=== PATIENT | female | born 1980 | race American Indian/Alaskan Native ===

== ENCOUNTER 2016-08-03 05:50 | Inpatient (IN) | payer MEDICAID ==
--- NOTE | 2016-07-29 09:51 | Anesthesia Consultation ---
Anesthesia Consult and Med Hx Date of service: 08/03/16 - Airway Anesthetic Teeth Evaluation: Good ROM Head & Neck: Adequate Mental/Hyoid Distance: Adequate Mallampati Class: Class III Intubation Access Assessment: Probably Good - Pulmonary Exam CTA: Yes - Cardiac Exam Cardiac Exam: RRR - Pre-Operative Health Status ASA Pre-Surgery Classification: ASA3 Proposed Anesthetic Plan: General - Pulmonary Hx Asthma: Yes (uses nebs and inhalers almost every day) - Cardiovascular System Hx Hypertension: Yes (x 6 or 7 yrs) - Central Nervous System Hx Psychiatric Problems: Yes - Gastrointestinal Hx Gastroesophageal Reflux Disease: Yes - Endocrine Hx End Stage Renal Disease: No - Hematic Hx Anemia: Yes ("slight") - Other Systems Hx Alcohol Use: No Hx Substance Use: No Hx Cancer: No Hx Obesity: Yes (BMI 48) - Additional Comments Anesthesia Medical History Comments: Patient denies previous anesthesia complications. Has been advised to take atenolol on DOS.
[2016-07-29 10:22] LABS: Eosinophils % (Auto) 1.6 % (0.0-4.3); Hematocrit 29.6 % (30.3-42.9); Mean Corpuscular HGB Conc 30 % (30-34); Platelet Count 486 K/mm3 (140-440); Red Cell Distribution Width 17.4 % (13.2-15.2); White Blood Count 6.2 K/mm3 (4.5-11.0)
[2016-07-29 10:23] LABS: Mean Corpuscular Hemoglobin 20 pg (28-32); Mean Corpuscular Volume 66 fl (79-97)
[2016-07-29 10:48] LABS: Alanine Aminotransferase 13 units/L (7-56); Albumin 3.7 g/dL (3.9-5); Albumin/Globulin Ratio 0.9 %; Alkaline Phosphatase 74 units/L (35-129); Anion Gap 15 mmol/L; Bilirubin,Total 0.2 mg/dL (0.1-1.2); Blood Urea Nitrogen 7 mg/dL (7-17); Calcium 8.7 mg/dL (8.4-10.2); Carbon Dioxide 26 mmol/L (22-30); Chloride 103.6 mmol/L (98-107); Glucose 100 mg/dL (65-100); Potassium 4.4 mmol/L (3.6-5.0); Sodium 140 mmol/L (137-145); Total Protein 7.8 g/dL (6.3-8.2)
--- NOTE | 2016-07-29 11:07 | XRay Report ---
ROUTINE CHEST, TWO VIEWS: PA and lateral views demonstrate the heart and mediastinal contour to be of normal size and shape. The lungs are clear and fully expanded and the soft tissues and bony structures are normal. IMPRESSION: Normal study.
--- NOTE | 2016-08-02 21:49 | History and Physical Report ---
History of Present Illness Date of examination: 07/28/16 Chief complaint: pelvic pain, dermoid cyst History of present illness: Pt is a 36 year old -[place] female who presents with pelvic pain and second occurrence of left dermoid cyst measuring 4.4 cm. She desires surgical management. 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 History: fibroids, herpes Family/Genetic History: diabetes, heart disease, hypertension, cancer, sickle cell/trait Social history: no significant social history, Medications and Allergies Allergies Allergy/AdvReac Type Severity Reaction Status Date / Time Sulfa (Sulfonamide Allergy Anaphylaxis Verified 07/28/16 15:07 Antibiotics) chocolate flavor AdvReac Unknown Hives Verified 07/28/16 15:07 tomato [Tomato] AdvReac Unknown Hives Verified 07/28/16 15:07 Home Medications Medication Instructions Recorded Confirmed Last Taken Type metFORMIN [Glucophage] 500 mg PO BID 08/22/15 07/29/16 08/21/15 History ARIPiprazole [Abilify TAB] 5 mg PO DAILY 07/29/16 07/29/16 Unknown History Albuterol Sulfate [Albuterol 0.63% 0.63 mg IH TID PRN 07/29/16 07/29/16 Unknown History NEBS] Atenolol [Tenormin] 50 mg PO DAILY 07/29/16 07/29/16 Unknown History Bupropion HCl [Wellbutrin XL] 300 mg PO QAM 07/29/16 07/29/16 Unknown History Flunisolide [Aerospan] 8.9 gm IH PRN PRN 07/29/16 07/29/16 Unknown History Spironolactone [Spironolactone] 50 mg PO DAILY 07/29/16 07/29/16 Unknown History Trazodone HCl [Oleptro ER] 150 mg PO QHS 07/29/16 07/29/16 Unknown History clonazePAM [ Klonopin] 0.5 mg PO BID 07/29/16 07/29/16 Unknown History Active Meds: Active Medications Celecoxib (Celebrex) 200 mg PO PREOP NR Stop: 08/03/16 23:59 Famotidine (Pepcid) 20 mg IV PREOP NR Stop: 08/03/16 23:59 Fentanyl (Sublimaze) 100 mcg IV ONCE NR Stop: 08/03/16 23:59 Gabapentin (Neurontin) 600 mg PO PREOP NR Stop: 08/03/16 23:59 Sodium Chloride (Nacl 0.9% 1000 Ml) 1,000 mls @ 75 mls/hr IV DIRECT MINDI Stop: 08/03/16 23:59 Midazolam HCl (Versed) 2 mg IV PREOP PRN PRN Reason: Agitation Stop: 08/03/16 23:59 Review of Systems All systems: negative - Vital Signs Vital signs: Vital Signs Temp Pulse Resp BP 97.6 F 80 16 128/84 07/29/16 09:30 07/29/16 09:30 07/29/16 09:30 07/29/16 09:30 Temp Pulse Resp BP Pulse Ox 97.6 F 80 16 128/84 07/29/16 09:30 07/29/16 09:30 07/29/16 09:30 07/29/16 09:30 - Physical Exam Breasts: Positive: deferred Cardiovascular: Regular rate Lungs: Positive: Clear to auscultation Abdomen: Positive: soft (obese) Extremities: Positive: normal Results Result Diagrams: 07/29/16 09:35 07/29/16 09:35 All other labs normal. Assessment and Plan A: Pelvic Pain Second occurrence of left dermoid ovarian cyst Obesity Hypertension Asthma Migraines H/o stroke P: Proceed with open left salpingo-oophorectomy and other indicated procedures.
[~2016-08-03 05:50] MED LIST: ANCEF/STERILE WATER 2 GM/20 ML 20 ML IV NR
[2016-08-03] MEDS ORDERED: PEPCID IV NR (06:00)
[2016-08-03] MEDS ORDERED: NACL 0.9% 1000 ML 1,000 ML IV SCH (06:00)
[2016-08-03] MEDS ORDERED: VERSED IV PRN (06:00)
[2016-08-03] MEDS ORDERED: NACL BACTERIOSTATIC INFILTRATI ONE (06:22)
[2016-08-03] MEDS ORDERED: MARCAINE-EPI 0.5%-1:200,000 INFILTRATI ONE (06:49)
[2016-08-03] MEDS ORDERED: MARCAINE-EPI/PF 0.5%-1:200,000 INFILTRATI ONE (06:49)
[2016-08-03] MEDS ORDERED: DECADRON ONE (06:49)
[2016-08-03] MEDS ORDERED: SUBLIMAZE IV NR (07:00)
[2016-08-03] MEDS ORDERED: NEURONTIN PO NR (07:00)
--- NOTE | 2016-08-03 07:17 | Anesthesia Day of Surgery ---
Anesthesia Day of Surgery - Day of Surgery Patient Examined: Yes Patient H&P Reviewed: Yes Patient is NPO: Yes Beta Blockers: Yes
[2016-08-03] MEDS ORDERED: DIPRIVAN 10 MG/ML IV ONE (07:20)
[2016-08-03] MEDS ORDERED: DILAUDID ONE (07:21)
[2016-08-03] MEDS ORDERED: ZEMURON IV ONE (07:21)
[2016-08-03] MEDS ORDERED: XYLOCAINE MPF 2% ONE (07:21)
[2016-08-03] MEDS ORDERED: DILAUDID IV PRN (07:30)
--- NOTE | 2016-08-03 07:36 | Admit Criteria Form ---
Admission Criteria Documentation: AMBULATORY SURGERY EXCEPTION CRITERIA Ambulatory Surgery Exception Criteria ( Place 'X' for any and all applicable criteria): Surgery or procedure performed on ambulatory basis may require inpatient stay for[A] ANY ONE of the following(1)(2)(3)(4)(5)(6)(7)(8)(9): [X] I. A preoperative situation, condition, or finding that warrants inpatient stay as indicated by ANY ONE of the following: [] a) Inpatient care needed because of severity of a disease or condition rather than the surgery (eg, severe cardiac or respiratory disease, severe infection) (15) (16 ) (17) (18) [] b) Emergent procedure (eg, angioplasty for acute ischemia)(19) [X] c) Complex surgical approach or situation as indicated by ANY ONE of the following(3): [X] i) Open approach needed instead of usual endoscopic, transcatheter, or other less invasive procedure [] ii) Difficult approach because of previous operation [] iii) Airway monitoring required after open neck procedures(20)(21) [] iv) Large mass requiring unusually extensive dissection [] v) Additional complicating feature requiring inpatient care (eg, drain management)(22(23): [X] d) Major surgery in a pt with high anesthetic risk as indicated by ANY ONE of the following (2)(3)(5)(7)(8): [X] i) ASA risk class III or higher (severe systemic disease impairing function) [D] [] ii) Advanced age (eg, older than 85 years)(14)(24) [] iii) Symptomatic heart failure(25) [] iv) Symptomatic asthma or COPD(8)(21) [] v) Morbid obesity with hemodynamic or respiratory problems(20)( 21)(26)(27) [] vi) Obstructive sleep apnea(20)(21) [] vii) Former premature infants who are younger than 60 weeks [] viii) High risk for severe postoperative abnormalities (eg, severe postoperative hypocalcemia after parathyroidectomy for severe hyperparathyroidism)(27)( 28) [] ix) Unstable angina(25) [] e) Drug-related risk requiring inpatient stay as indicated by ANY ONE of the following(5)(10)(14)(32)(33) [] i) Procedure requires discontinuing drugs or other therapy (eg , antiarrhythmic medication, antiseizure medication), which necessitates inpatient observation or treatment.(18)(31) [] ii) Major surgery and high risk drug use as indicated by ANY ONE of the following: [] 1) Active abuse of cocaine or similar drug [] 2) Monoamine oxidase inhibitor use [] 3) Other drug identified as posing risk [] f) Inadequate outpatient care situation as indicated by ANY ONE of the following(5)(10)(14)(32)(33) [] i) Patient lives remote from medical facility and procedure has urgent complication potential, and temporary nearby residence cannot be arranged [] ii) Patient will have postprocedure incapacitation and inadequate assistance at home, or alternative level of care cannot be arranged. [] iii) Patient will have long general anesthesia or procedure side effect resolution time, and competent person to stay with patient on first postoperative night at home or alternative level of care cannot be arranged. []iv) Other inadequate outpatient situation that cannot be handled by other means [] II. A perioperative event, condition, or finding that warrants inpatient stay as indicated by ANY ONE of the following (1)(2)(3): [] a) Inadequate physiologic recovery: cardiovascular, respiratory, or hemodynamic status not normal or near preoperative baseline(18) [] b) Hemodynamic instability [] c) Patient not alert with near normal or baseline mental status [] d) Temperature not normal or as expected and not appropriate for outpatient treatment of condition [] e) Ambulatory or appropriate activity level status not yet achieved post procedure [E](34)(35)(36) [] f) Operative site not appropriate (eg, unexpected or excessive drainage or bleeding) [] g) Postoperative effects not resolved or adequately managed (eg, significant pain or vomiting not appropriate for outpatient or next level of care)(10)(12) [] h) Complicating features requiring inpatient care as indicated by ANY ONE of the following(37): [] i) Severe complications of procedure (eg, bowel injury, airway compromise, vascular injury,severe hemorrhage) [] ii) Extensive (eg, dissection far beyond usual scope of procedure ) or prolonged (eg, 120 minutes beyond usual) surgery needed requiring inpatient postoperative care [] iii) Conversion to an open or complex procedure that requires inpatient care (eg, open vs laparoscopic cholecystectomy, abdominal vs vaginal hysterectomy)(38) [] iv) Comorbid condition or test result identified during or post procedure that requires inpatient care (7) [] v) Malignant hyperthermia(30) [] vi) Other complicating feature requiring inpatient care(22)(23) Inpatient stay may be needed until ALL of the following are present (1)(2)(3)(4) (5)(6)(10)(14)(33)(40): []a) Physiologic recovery: cardiovascular, respiratory, and hemodynamic status normal or near preoperative baseline []b) Hemodynamic stability []c) Patient alert, with near normal or baseline mental status []d) Temperature appropriate: patient afebrile or temperature appropriate for outpt treatment of condition []e) Activity level appropriate: ambulatory or appropriate activity level post procedure []f) Operative site appropriate as indicated by ALL of the following: []i) Site dry or with expected drainage []ii) Any blood noted is as expected for procedure. []g) Postoperative effects resolved or managed as indicated by ALL of the following: []i) Pain management appropriate for outpatient (or next level of) care(10) []ii) Minimal nausea and vomiting: if present, successfully treated with oral medication(12) []iii) Headache, dizziness, or drowsiness (if present) are mild. []h) Voiding status acceptable as indicated by ANY ONE of the following: []i) Voiding spontaneously []ii) No voiding but instructions given for follow-up in 6 to 8 hours []iii) Urinary catheter in place, and instructions given for follow-up []i) Complicating features requiring inpatient care manageable at a lower level of care(37) []j) Comorbid conditions manageable at a lower level of care(37) The original [facility] content created by [employer] has been revised. The portions of the content which have been revised are identified through the use of italic text or in bold, and [facility] has neither reviewed nor approved the modified material. All other unmodified content is copyright [facility]. Please see references footnoted in the original [facility] edition 2016 Admission Criteria Met: Yes
[2016-08-03] MEDS ORDERED: ZOFRAN IV PRN ×2 (08:00→11:18)
[2016-08-03] MEDS ORDERED: CLONIDINE 1,000 MCG/10 ML VIAL EP ONE (08:00)
[2016-08-03] MEDS ORDERED: NACL 0.9% 1000 ML 1,000 ML ONE (08:05)
[2016-08-03] MEDS ORDERED: ROBINUL ONE (08:17)
[2016-08-03] MEDS ORDERED: ZOFRAN ONE (08:17)
[2016-08-03] MEDS ORDERED: BLOXIVERZ ONE (08:17)
[2016-08-03] MEDS ORDERED: NACL 0.9% IR ONE (08:48)
--- NOTE | 2016-08-03 09:19 | Operative Report ---
Operative Report Operative Report: Date of Procedure: August 03, 2016 Preoperative diagnosis: 1) Pelvic Pain 2) Left dermoid cyst, second occurrence Postoperative diagnosis: 1) Right ovarian cyst 2) Left paratubal cyst Procedure: 1) Laparotomy 2) Right ovarian cystectomy 3) Left paratubal cystectomy Surgeon: Parris Maceil MD Parking Assistant: Mellissa Florez MD Anesthesia: GETA Findings: 1) 3 cm right ovarian cyst, simple appearing 2) 2 cm left paratubal cyst, simple appearing 3) No evidence of dermoid cyst in either adnexa EBL: 50 mL IVF: 750 mL Urine output: 225 mL, clear at the end of the procedure Drains: Wang to gravity Specimens: right ovarian cyst wall, left paratubal cyst wall to pathology Complication: None. Counts correct x 2 Disposition: Stable to PACU Indication for Procedure: Pt is a 36 year old -[place] female who presents for surgical management of pelvic pain and second occurrence of left dermoid cyst (4.4 cm) as evidenced by pelvic ultrasound. During her first surgery, there was conversion from laparoscopic to an open approach, therefore an open approach has been chosen for this procedure. Operation In Detail: After the risks, benefits, alternatives and complications were explained to the pt, she gave informed consent for the procedure. She was subsequently taken to the operating room with her IV noted to be running well and placed in the dorsal supine position. SCDs were noted to be in place and functioning. General anesthesia was then induced without difficulty. She was then prepped and draped in a normal sterile fashion including placement of a wang catheter. A time out was performed. A Pfannenstiel incision was created with the knife and carried down to the fascia with the Bovie. The fascia was then incised in the midline with the Bovie and the incision was extended bilaterally with the Bovie. The superior edge of incision was then grasped with two Kochers, tented up and dissected off the rectus muscles. Attention was then turned to the inferior aspect of the incision which was grasped with two Kochers, tented up and dissected off the rectus muscles. Peritoneal was noted during this dissection. The peritoneal incision was extended with the Bovie with good visualization of the bladder. The incision was then stretched. An Jason self-retaining retractor was placed. The pt was the placed in Trendelenberg position to facilitate movement of the bowel out of the pelvis. The uterus was elevated out of the pelvis and the adnexae were evaluated bilaterally. There was no evidence of a 4 cm cyst on either side. On the right side, a 3 cm apparently simple cyst was noted. The cyst wall was coagulated with the Bovie and drained. The cyst wall was subsequently excised from the ovarian tissue and handed off the field. Hemostasis was noted. Attention was then turned to the left adnexa where a 2 cm paratubal cyst was noted, but no ovarian cysts. The cyst was punctured, drained and excised. The cyst wall was handed off the field. The remaining edge of the ovary was sutured with 2 figure- of-eights of 3-0 Vicryl to obtain hemostasis. Hemostasis was noted. The abdomen was then irrigated. Aisha AH was sprayed over the two cut surfaces. All instruments and retractors were removed from the abdomen and the pt was leveled. The peritoneum was then reapporoximated with 3-0 Vicryl in a running fashion. The fascia was reapproximated with 0-Vicryl in a running fashion. The subcutaneous tissue was reapproximated with 3-0 Vicryl in a running fashion. The skin was reapproximated with 4-0 Vicryl in a subcuticular fashion. The incision was then covered with steristrips and a pressure dressing. The procedure was ended. The pt tolerated the procedure well. She was extubated and taken to the PACU in stable condition. All instrument, lap and needle counts were correct x 2.
--- NOTE | 2016-08-03 09:19 | Post Operative Note ---
Pre-op diagnosis: Left dermoid cyst Post-op diagnosis: other (Right ovarian cystectomy, Left paratubal cystectomy) Findings: 1) 3 cm right ovarian cyst, simple appearing 2) 2 cm left paratubal cyst, simple appearing 3) No evidence of dermoid cyst in either adnexa Procedure: 1) Laparotomy 2) Right ovarian cystectomy 3) Left paratubal cystectomy Anesthesia: GETA Surgeon: ANGEL BARGER Estimated blood loss: 50-100ml (50 mL) Pathology: list (right ovarian cyst wall, left paratubal cyst wall) Specimen disposition: to lab Condition: stable Disposition: PACU
--- NOTE | 2016-08-03 10:05 | Post Anesthesia Evaluation ---
- Post Anesthesia Evaluation Patient Participated: Yes Airway Patent: Yes Stable Respiratory Function: Yes Nausea/Vomiting: No Temp > 96.8F: Yes Pain Manageable: Yes Adequeate Hydration: Yes Anesthesia Complications: No Block Receding Appropriately: Not Applicable Patient on Ventilator: No
[2016-08-03] MEDS ORDERED: NARCAN 0.4 MG/1 ML IV PRN ×3 (10:21→11:18)
[2016-08-03] MEDS ORDERED: MORPHINE PCA 30MG/30ML IV ONE (10:23)
[2016-08-03] MEDS ORDERED: DULCOLAX PR PRN (11:18)
[2016-08-03] MEDS ORDERED: MILK OF MAGNESIA PO PRN (11:18)
[2016-08-03] MEDS ORDERED: MORPHINE PCA 30MG/30ML IV SCH (11:18)
[2016-08-03] MEDS ORDERED: BENADRYL PO PRN (11:18)
[2016-08-03] MEDS ORDERED: BENADRYL IV PRN (11:18)
[2016-08-03] MEDS ORDERED: TORADOL ONE (12:20)
[2016-08-03] MEDS: TORADOL IV SCH ×2 (12:33→17:15)
[2016-08-03] MEDS: LACTATED RINGERS 1,000 ML IV SCH (13:32)
[2016-08-04] MEDS: TORADOL IV SCH ×2 (00:05→05:45)
[2016-08-04] MEDS: LACTATED RINGERS 1,000 ML IV SCH (00:05)
[2016-08-04 06:02] LABS: Hematocrit 25.6 % (30.3-42.9); Hemoglobin 7.8 gm/dl (10.1-14.3)
--- NOTE | 2016-08-04 08:59 | Progress Note ---
Assessment and Plan A; POD#1 s/p ex lap, ovarian cystectomy, paratubal cystectomy P: Routine postoperative care. Subjective - Subjective Date of service: 08/04/16 Principal diagnosis: POD#1 s/p ex lap, ovarian cystectomy, paratubal cystectomy Interval history: No overnight events. Patient reports: pain well controlled, no voiding normally (wang just removed ) , no flatus, no bowel movement, no nauseated Objective - Vital Signs Latest vital signs: Vital Signs Temp Pulse Pulse Pulse Resp BP BP 08/04/16 07:41 20 08/04/16 07:20 97.9 F 80 20 08/04/16 06:15 97.6 F 86 18 114/70 08/04/16 01:30 98.1 F 80 18 133/83 08/03/16 21:00 98.2 F 85 18 142/83 08/03/16 18:00 20 08/03/16 17:15 100 H 136/83 08/03/16 16:15 20 08/03/16 16:00 98.4 F 90 20 124/80 08/03/16 14:15 20 08/03/16 12:15 20 08/03/16 11:05 98.3 F 88 20 122/84 08/03/16 10:30 85 21 132/85 08/03/16 10:15 97.4 F L 86 22 141/89 08/03/16 09:55 86 23 147/91 08/03/16 09:40 88 29 H 138/86 08/03/16 09:25 92 H 28 H 138/86 08/03/16 09:20 91 H 22 140/85 08/03/16 09:14 97.8 F 98 H 12 138/80 08/03/16 08:58 98.3 F 98 H 18 131/84 BP Pulse Ox 08/04/16 07:41 08/04/16 07:20 100/64 08/04/16 06:15 08/04/16 01:30 08/03/16 21:00 08/03/16 18:00 08/03/16 17:15 08/03/16 16:15 08/03/16 16:00 08/03/16 14:15 08/03/16 12:15 08/03/16 11:05 08/03/16 10:30 96 08/03/16 10:15 95 08/03/16 09:55 100 08/03/16 09:40 98 08/03/16 09:25 97 08/03/16 09:20 96 08/03/16 09:14 98 08/03/16 08:58 96 Intake and Output 08/03/16 08/04/16 08/04/16 22:59 06:59 14:59 Intake Total 960 1430 Output Total 700 1100 Balance 260 330 Intake: IV 600 1150 NaCl 0.9% 1000 ml 1,000 150 ml @ 75 mls/hr IV DIRECT MINDI Rx#:[id number] Lactated Ringers 1,000 ml 400 600 @ 100 mls/hr IV DIRECT MINDI Rx#:[id number] Left Forearm 200 400 Oral 360 Intake, Free Water 280 Output: Urine 700 1100 Indwelling Catheter 700 1100 Other: Total, Intake Amount 360 Total, Output Amount 700 300 Voiding Method Indwelling Catheter - Exam Breasts: Present: deferred Cardiovascular: Present: Regular rate Lungs: Present: Clear to auscultation Abdomen: Present: soft (obese ), abnormal bowel sounds (hypoactive bowel sounds ) Extremities: Present: edema (trace ) - Labs Labs: Abnormal lab results 08/03/16 08/04/16 08/04/16 Range/Units 09:42 05:41 05:59 Hgb 7.8 L (10.1-14.3) gm/dl Hct 25.6 L (30.3-42.9) % POC Glucose 133 H 106 H (70-105)
[2016-08-04] MEDS ORDERED: MORPHINE IV PRN (09:30)
--- NOTE | 2016-08-04 11:40 | Progress Note ---
Subjective Date of service: 08/04/16 Principal diagnosis: POD#1 s/p ex lap, ovarian cystectomy, paratubal cystectomy Interval history: 1st POD after exploratory laparotomy. Patient is in thr bed, relatively comfortable. Pain is well controlled with pain meds. Ambulated. No nausea or vomiting. No anesthesia complications Objective - Constitutional Vitals: Vital Signs - 12hr 08/04/16 08/04/16 08/04/16 01:30 06:15 07:20 Temperature 98.1 F 97.6 F 97.9 F Pulse Rate [ 80 86 Right Brachial] Pulse Rate [ 80 Right Radial] Respiratory 18 18 20 Rate Blood Pressure 133/83 114/70 [Right Arm] Blood Pressure 100/64 [Right Radial Artery] 08/04/16 08/04/16 07:41 08:00 Temperature Pulse Rate [ Right Brachial] Pulse Rate [ Right Radial] Respiratory 20 20 Rate Blood Pressure [Right Arm] Blood Pressure [Right Radial Artery] - Labs CBC & Chem 7: 08/04/16 05:41 07/29/16 09:35 Labs: Abnormal lab results 08/04/16 08/04/16 Range/Units 05:41 05:59 Hgb 7.8 L (10.1-14.3) gm/dl Hct 25.6 L (30.3-42.9) % POC Glucose 106 H (70-105)
[2016-08-04] MEDS: PERCOCET 5/325 PO PRN ×2 (14:22→22:15)
[2016-08-04] MEDS ORDERED: AMBIEN PO PRN (17:37)
[2016-08-05] MEDS: PERCOCET 5/325 PO PRN ×2 (01:58→12:14)
--- NOTE | 2016-08-05 11:36 | Progress Note ---
Assessment and Plan A; POD#2 s/p ex lap, ovarian cystectomy, paratubal cystectomy P: Routine postoperative care. Discharge today with follow up in 2 wks. Subjective - Subjective Date of service: 08/05/16 Principal diagnosis: POD#2 s/p ex lap, ovarian cystectomy, paratubal cystectomy Interval history: No overnight events. Pt had a bowel movement overnight. Patient reports: appetite normal, voiding normally, pain well controlled, flatus , bowel movement, ambulating normally, no nauseated Objective - Vital Signs Latest vital signs: Vital Signs Temp Pulse Resp BP 08/05/16 08:45 97.1 F L 80 20 126/88 08/05/16 07:45 20 08/05/16 04:15 98.3 F 85 20 128/69 08/05/16 00:25 98.4 F 87 24 142/85 08/04/16 20:00 98.9 F 90 20 132/79 08/04/16 17:30 97.4 F L 76 20 112/70 08/04/16 12:15 97.7 F 88 20 100/66 Intake and Output 08/04/16 08/05/16 08/05/16 22:59 06:59 14:59 Intake Total 480 480 120 Output Total 375 990 5101 Balance 180 180 -880 Intake: Oral 360 480 120 Intake, Free Water 120 Output: Urine 968 220 7396 Indwelling Catheter 200 Void 290 376 9892 Other: Total, Intake Amount 360 240 120 Total, Output Amount 100 300 200 Voiding Method Toilet - Exam Breasts: Present: deferred Cardiovascular: Present: Regular rate Lungs: Present: Clear to auscultation Abdomen: Present: soft (obese ), normal bowel sounds Extremities: Present: normal Incision: Present: intact
--- NOTE | 2016-08-05 11:41 | Discharge Summary ---
Providers - Providers Date of Admission: 08/03/16 05:50 Date of discharge: 08/05/16 Attending physician: ANGEL BARGER Primary care physician: MICHEL DENNEY Hospitalization Reason for admission: other (Ex lap, ovarian cystectomy, paratubal cystectomy ) Procedure details: Please see operative note. Incision: intact Other procedures: none complications: none Discharge diagnosis: other (Pelvic Pain, ovarian cyst, morbid obesity ) Hospital course: Pt tolerated her surgery well. Her postoperative course was uncomplicated and she met discharge criteria on POD#2. Condition at discharge: Stable Disposition: DISCHARGED TO HOME OR SELFCARE - Discharge Diagnoses (1) Morbid obesity Status: Acute Qualifiers: Obesity type: due to excess calories Qualified Code(s): E66.01 - Morbid ( severe) obesity due to excess calories (2) Pelvic pain Status: Acute Plan - Discharge Medications Prescriptions: Docusate Sodium [Colace] 100 mg PO BID PRN #60 capsule PRN Reason: Constipation Ferrous Sulfate [Feosol 325 MG tab] 325 mg PO BID #60 tablet Ibuprofen [Motrin] 800 mg PO Q8HR PRN #30 tablet PRN Reason: Pain Simethicone [Gas Relief] 125 mg PO BID PRN #30 capsule PRN Reason: Gas Pain oxyCODONE /ACETAMINOPHEN [Percocet 5/325] 1 tab PO Q6HR PRN #30 tablet PRN Reason: Pain - Provider Discharge Summary Activity: no sex for 6 weeks, no heavy lifting 4 weeks, no strenuous exercise Diet: routine Instructions: routine Additional instructions: [] Smoking cessation referral if applicable(refer to patient education folder for contact #) [] Refer to [facility] Booklet Call your doctor immediately for: * Fever > 100.5 * Heavy vaginal bleeding ( >1 pad per hour) * Severe persistent headache * Shortness of breath * Reddened, hot, painful area to leg or breast * Drainage or odor from incision. * Keep incision clean and dry at all times and follow doctor's instructions regarding bathing/showering - Follow up plan Follow up: MICHEL DENNEY MD [Primary Care Provider] - 7 Days ANGEL BARGER MD [Staff Physician] - 7 Days
[2016-08-05 13:38] VITALS: BP 142/88
== END 2016-08-05 13:00 | disposition home or self-care (01) | DRG 742 ==
LOC: 3A 05:50 → OB 10:12
PROVIDERS: ADMIT Obstetrics & Gynecology; ATTEND Obstetrics & Gynecology
PROC: 0UB00ZZ Excision of Right Ovary, Open Approach (ICD-10-PCS; principal; 2016-08-03)
PROC: 0UB60ZZ Excision of Left Fallopian Tube, Open Approach (ICD-10-PCS; 2016-08-03)
PROC: 0WJJ0ZZ Inspection of Pelvic Cavity, Open Approach (ICD-10-PCS; 2016-08-03)
DX: D27.0 Benign neoplasm of right ovary (principal); Z68.42 Body mass index [BMI] 45.0-49.9, adult; E66.01 Morbid (severe) obesity due to excess calories; J45.909 Unspecified asthma, uncomplicated; I10 Essential (primary) hypertension; K21.9 Gastro-esophageal reflux disease without esophagitis; G43.909 Migraine, unspecified, not intractable, without status migrainosus; N83.8 Other noninflammatory disorders of ovary, fallopian tube and broad ligament; Z86.73 Personal history of transient ischemic attack (TIA), and cerebral infarction without residual deficits; Z83.3 Family history of diabetes mellitus; Z82.49 Family history of ischemic heart disease and other diseases of the circulatory system; Z88.2 Allergy status to sulfonamides; Z91.018 Allergy to other foods
CPT/HCPCS: 36415; 64450; 71020; 80053; 82962; 84703; 85014; 85018; 85025; 88304; 88305; J0690; J0735; J1100; J1170; J1885; J2250; J2270; J2405; J2704; J2710; J3010; J7030; J7120

== ENCOUNTER 2017-04-13 13:13 | Emergency (ER) | payer SELFPAY ==
[2017-04-13 14:08] LABS: Basophils % (Auto) 1.6 % (0.0-1.8); Eosinophils % (Auto) 1.4 % (0.0-4.3); Mean Corpuscular HGB Conc 30 % (30-34); Platelet Count 543 K/mm3 (140-440); Red Blood Count 4.58 M/mm3 (3.65-5.03); Red Cell Distribution Width 16.7 % (13.2-15.2); White Blood Count 8.4 K/mm3 (4.5-11.0)
[2017-04-13 14:10] LABS: Mean Corpuscular Hemoglobin 20 pg (28-32); Mean Corpuscular Volume 66 fl (79-97)
[2017-04-13 14:28] LABS: Anion Gap 18 mmol/L; Blood Urea Nitrogen 7 mg/dL (7-17); Calcium 9.1 mg/dL (8.4-10.2); Carbon Dioxide 26 mmol/L (22-30); Chloride 100.2 mmol/L (98-107); Glucose 95 mg/dL (65-100); Potassium 3.8 mmol/L (3.6-5.0); Sodium 140 mmol/L (137-145)
[2017-04-13 20:59] VITALS: BP 127/56
--- NOTE | 2017-04-13 21:58 | Emergency Department Report ---
ED Chest Pain HPI - General Chief Complaint: Chest Pain Stated Complaint: CP/ POOR BLOOD FLOW Time Seen by Provider: 04/13/17 21:27 Source: patient Mode of arrival: Ambulatory Limitations: No Limitations - History of Present Illness Initial Comments: This is a 36 years old female history of high blood pressure came today with chief complain of left-sided chest pain, it has been going on for 2 weeks,also bilateral lower extremity swelling. Patient denied any shortness of breath, fever or cough. Patient currently does not have any chest pain MD Complaint: chest pain -: Gradual Onset: during exertion Pain Location: substernal Pain Radiation: none Severity scale (0 -10): 0 Quality: aching - Related Data Home Medications Medication Instructions Recorded Confirmed Last Taken metFORMIN [Glucophage] 500 mg PO BID 08/22/15 08/03/16 08/02/16 ARIPiprazole [Abilify TAB] 5 mg PO DAILY 07/29/16 08/03/16 08/02/16 Albuterol Sulfate [Albuterol 0.63% 0.63 mg IH TID PRN 07/29/16 08/03/16 08/03/16 NEBS] Atenolol [Tenormin] 50 mg PO DAILY 07/29/16 08/03/16 08/02/16 Bupropion HCl [Wellbutrin XL] 300 mg PO QAM 07/29/16 08/03/16 08/02/16 Flunisolide [Aerospan] 8.9 gm IH PRN PRN 07/29/16 08/03/16 08/02/16 Spironolactone [Spironolactone] 50 mg PO DAILY 07/29/16 08/03/16 08/02/16 Trazodone HCl [Oleptro ER] 150 mg PO QHS 07/29/16 08/03/16 08/02/16 clonazePAM [ Klonopin] 0.5 mg PO BID 07/29/16 08/03/16 08/02/16 Previous Rx's Medication Instructions Recorded Last Taken Type Docusate Sodium [Colace] 100 mg PO BID PRN #60 capsule 08/05/16 Unknown Rx Ferrous Sulfate [Feosol 325 MG tab] 325 mg PO BID #60 tablet 08/05/16 Unknown Rx Ibuprofen [Motrin] 800 mg PO Q8HR PRN #30 tablet 08/05/16 Unknown Rx Simethicone [Gas Relief] 125 mg PO BID PRN #30 capsule 08/05/16 Unknown Rx oxyCODONE /ACETAMINOPHEN [Percocet 1 tab PO Q6HR PRN #30 tablet 08/05/16 Unknown Rx 5/325] Furosemide [Lasix] 20 mg PO QDAY #15 tablet 04/13/17 Unknown Rx Potassium Chloride [K-Dur] 10 meq PO QDAY #15 tablet 04/13/17 Unknown Rx Allergies Allergy/AdvReac Type Severity Reaction Status Date / Time Sulfa (Sulfonamide Allergy Anaphylaxis Verified 07/28/16 15:07 Antibiotics) chocolate flavor AdvReac Unknown Hives Verified 07/28/16 15:07 tomato [Tomato] AdvReac Unknown Hives Verified 07/28/16 15:07 Heart Score - HEART Score History: Moderately suspicious EKG: Non-specific Age: < 45 Risk factors: 1-2 risk factors Troponin: < normal limit HEART Score: 3 - Critical Actions Critical Actions: 0-3 pts:0.9-1.7%risk of adverse cardiac event.Candidate for discharge ED Review of Systems ROS: Stated complaint: CP/ POOR BLOOD FLOW Other details as noted in HPI Comment: All other systems reviewed and negative Constitutional: denies: chills, fever Respiratory: denies: cough, shortness of breath, SOB with exertion Cardiovascular: chest pain. 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 - Social History Smoking Status: Never Smoker Substance Use Type: None - Medications Home Medications: Home Medications Medication Instructions Recorded Confirmed Last Taken Type metFORMIN [Glucophage] 500 mg PO BID 08/22/15 08/03/16 08/02/16 History ARIPiprazole [Abilify TAB] 5 mg PO DAILY 07/29/16 08/03/16 08/02/16 History Albuterol Sulfate [Albuterol 0.63% 0.63 mg IH TID PRN 07/29/16 08/03/16 History NEBS] Atenolol [Tenormin] 50 mg PO DAILY 07/29/16 08/03/16 08/02/16 History Bupropion HCl [Wellbutrin XL] 300 mg PO QAM 07/29/16 08/03/16 08/02/16 History Flunisolide [Aerospan] 8.9 gm IH PRN PRN 07/29/16 08/03/16 08/02/16 History Spironolactone [Spironolactone] 50 mg PO DAILY 07/29/16 08/03/16 08/02/16 History Trazodone HCl [Oleptro ER] 150 mg PO QHS 07/29/16 08/03/16 08/02/16 History clonazePAM [ Klonopin] 0.5 mg PO BID 07/29/16 08/03/16 08/02/16 History Docusate Sodium [Colace] 100 mg PO BID PRN #60 capsule 08/05/16 Unknown Rx Ferrous Sulfate [Feosol 325 MG tab] 325 mg PO BID #60 tablet 08/05/16 Unknown Rx Ibuprofen [Motrin] 800 mg PO Q8HR PRN #30 tablet 08/05/16 Unknown Rx Simethicone [Gas Relief] 125 mg PO BID PRN #30 capsule 08/05/16 Unknown Rx oxyCODONE /ACETAMINOPHEN [Percocet 1 tab PO Q6HR PRN #30 tablet 08/05/16 Unknown Rx 5/325] Furosemide [Lasix] 20 mg PO QDAY #15 tablet 04/13/17 Unknown Rx Potassium Chloride [K-Dur] 10 meq PO QDAY #15 tablet 04/13/17 Unknown Rx ED Physical Exam - General Limitations: No Limitations General appearance: alert, in no apparent distress - Eye Eye exam: Present: normal appearance - ENT ENT exam: Present: normal exam - Neck Neck exam: Present: normal inspection - Respiratory Respiratory exam: Present: normal lung sounds bilaterally. Absent: respiratory distress, wheezes, rales, rhonchi - Cardiovascular Cardiovascular Exam: Present: regular rate, normal rhythm, normal heart sounds - GI/Abdominal GI/Abdominal exam: Present: soft - External exam: Present: normal external exam - Extremities Exam Extremities exam: Present: normal inspection, pedal edema - Back Exam Back exam: Present: normal inspection. Absent: CVA tenderness (R), CVA tenderness (L) - Neurological Exam Neurological exam: Present: alert, oriented X3, CN II-XII intact - Skin Skin exam: Present: warm, normal color ED Course Vital Signs 04/13/17 04/13/17 04/13/17 13:42 19:44 20:57 Temperature 99.0 F 98 F Pulse Rate 114 H 120 H Respiratory 20 16 18 Rate Blood Pressure 163/95 [Left] O2 Sat by Pulse 99 99 99 Oximetry 04/13/17 20:58 Temperature 98.3 F Pulse Rate 74 Respiratory 18 Rate Blood Pressure 127/56 [Left] O2 Sat by Pulse 99 Oximetry CLEO score - Cleo Score Age > 65: (0) No Aspirin use within the Past 7 Days: (0) No 3 or more CAD Risk Factors: (0) No 2 or more Angina events in past 24 hrs: (0) No Known CAD with more than 50% Stenosis: (0) No Elevated Cardiac Markers: (0) No ST Deviation Greater than 0.5mm: (0) No CLEO Score: 0 ED Medical Decision Making - Lab Data Result diagrams: 04/13/17 13:57 04/13/17 13:57 - EKG Data -: EKG Interpreted by Me EKG shows normal: sinus rhythm - EKG Data Interpretation: no acute changes - Medical Decision Making Patient chest pain has been going on for approximately 2 weeks. 3 Troponin are negative. Patient does not want a chest x-ray. She stated that she'll follow primary care physician for further management. I would provide how his Lasix to help was a lower extremity edema. I advised the patient to return to the ER if her symptoms is not improving. Critical care attestation.: If time is entered above; I have spent that time in minutes in the direct care of this critically ill patient, excluding procedure time. ED Disposition Clinical Impression: Chest pain, Peripheral edema Disposition: - TO HOME OR SELFCARE Is pt being admited?: No Condition: Stable Instructions: Chest Pain (ED), Leg Edema (ED) Prescriptions: Furosemide [Lasix] 20 mg PO QDAY #15 tablet Potassium Chloride [K-Dur] 10 meq PO QDAY #15 tablet Referrals: PRIMARY CARE, [Primary Care Provider] - 3-5 Days
== END 2017-04-13 22:05 | disposition home or self-care (01) ==
LOC: ED 13:13
DX: R07.89 Other chest pain (principal); M79.89 Other specified soft tissue disorders; I10 Essential (primary) hypertension; G43.909 Migraine, unspecified, not intractable, without status migrainosus; Z88.2 Allergy status to sulfonamides; Z91.018 Allergy to other foods
CPT/HCPCS: 36415; 80048; 83880; 84484; 85025; 93005; 93010; 99284

== ENCOUNTER 2019-06-07 14:25 | Inpatient (IN) | payer MEDICAID ==
[2019-06-07] MEDS ORDERED: D5W/0.2% NACL 1,000 ML IV SCH (16:00)
[2019-06-07 19:59] LABS: Hematocrit 28.2 % (30.3-42.9); Hemoglobin 9.4 gm/dl (10.1-14.3)
[2019-06-07 20:15] LABS: % Iron Saturation 6.78 %
[2019-06-07 20:15] LABS: Iron 25 ug/dL (37-170); Total Iron Binding Capacity 356 mcg/dL (250-450)
--- NOTE | 2019-06-07 20:22 | History and Physical Report ---
History of Present Illness Date of examination: 06/07/19 Date of admission: 06/07/19 16:08 Chief complaint: SOB/Dyspnea, generalized fatigue, Anemia symptomatic. History of present illness: Patient, presented to the office, with CC of easy fatigue/ generalized weakness. Hgb 2weeks ago, 9.2, and patient have hemorrhage from abnormal cycle since then, and now quite symptomatic.She is admitted , for sxs management, and control. she will get replacement transfusion, hydration, and lab draw. Once stable, she will be D/c home. Past History Past Medical History: anemia Social history: no significant social history, lives with family Family history: no significant family history Medications and Allergies Allergies Allergy/AdvReac Type Severity Reaction Status Date / Time Sulfa (Sulfonamide Allergy Anaphylaxis Verified 07/28/16 15:07 Antibiotics) chocolate flavor AdvReac Unknown Hives Verified 07/28/16 15:07 tomato [Tomato] AdvReac Unknown Hives Verified 07/28/16 15:07 Home Medications Medication Instructions Recorded Confirmed Last Taken Type metFORMIN [Glucophage] 500 mg PO BID 08/22/15 08/03/16 08/02/16 History ARIPiprazole [Abilify TAB] 5 mg PO DAILY 07/29/16 08/03/16 08/02/16 History Albuterol Sulfate [Albuterol 0.63% 0.63 mg IH TID PRN 07/29/16 08/03/16 08/03/16 History NEBS] Atenolol [Tenormin] 50 mg PO DAILY 07/29/16 08/03/16 08/02/16 History Bupropion HCl [Wellbutrin XL] 300 mg PO QAM 07/29/16 08/03/16 08/02/16 History Flunisolide [Aerospan] 8.9 gm IH PRN PRN 07/29/16 08/03/16 08/02/16 History Spironolactone 50 mg PO DAILY 07/29/16 08/03/16 08/02/16 History Trazodone HCl [Oleptro ER] 150 mg PO QHS 07/29/16 08/03/16 08/02/16 History clonazePAM [ Klonopin] 0.5 mg PO BID 07/29/16 08/03/16 08/02/16 History Docusate Sodium [Colace] 100 mg PO BID PRN #60 capsule 08/05/16 Unknown Rx Ferrous Sulfate [Feosol 325 MG tab] 325 mg PO BID #60 tablet 08/05/16 Unknown Rx Ibuprofen [Motrin] 800 mg PO Q8HR PRN #30 tablet 08/05/16 Unknown Rx Simethicone [Gas Relief] 125 mg PO BID PRN #30 capsule 08/05/16 Unknown Rx oxyCODONE /ACETAMINOPHEN [Percocet 1 tab PO Q6HR PRN #30 tablet 08/05/16 Unknown Rx 5/325] Furosemide [Lasix] 20 mg PO QDAY #15 tablet 04/13/17 Unknown Rx Potassium Chloride [K-Dur] 10 meq PO QDAY #15 tablet 04/13/17 Unknown Rx Active Meds: Active Medications Dextrose/Sodium Chloride (D5ns 0.2%) 1,000 mls @ 85 mls/hr IV DIRECT MINDI Lisinopril (Zestril) 40 mg PO QHS MINDI Sodium Chloride (Sodium Chloride Flush Syringe 10 Ml) 10 ml IV BID MINDI Sodium Chloride (Sodium Chloride Flush Syringe 10 Ml) 10 ml IV PRN PRN PRN Reason: LINE FLUSH Review of Systems Constitutional: fatigue, weakness Breasts: deferred Menstruation: period heavy, menses 8 or > days Musculoskeletal: low back pain Psychiatric: depression Exam - Constitutional Vitals: Temp Pulse Resp BP Pulse Ox 98.1 F 82 20 153/73 99 06/07/19 17:08 06/07/19 17:08 06/07/19 17:08 06/07/19 17:08 06/07/19 17:08 General appearance: Present: mild distress, well-nourished - EENT Eyes: Present: PERRL ENT: hearing intact, clear oral mucosa - Neck Neck: Present: supple, normal ROM - Respiratory Respiratory effort: normal Respiratory: bilateral: CTA - Cardiovascular Heart Sounds: Present: S1 & S2. Absent: rub, click - Extremities Extremities: pulses symmetrical, No edema Peripheral Pulses: within normal limits - Abdominal General gastrointestinal: Present: soft, non-tender, non-distended, normal bowel sounds Female genitourinary: Present: deferred - Rectal Rectal Exam: deferred - Integumentary Integumentary: Present: clear, warm, dry - Musculoskeletal Musculoskeletal: gait normal, strength equal bilaterally - Psychiatric Psychiatric: appropriate mood/affect, intact judgment & insight - Neurologic Neurologic: CNII-XII intact, moves all extremities Results - Labs CBC & Chem 7: 06/07/19 19:33 Labs: Abnormal lab results 06/07/19 06/07/19 06/07/19 Range/Units 19:33 19:33 19:46 Hgb 9.4 L (10.1-14.3) gm/dl Hct 28.2 L (30.3-42.9) % Iron 24 L 25 L (37-170) ug/dL Assessment and Plan - Patient Problems (1) Symptomatic anemia Current Visit: Yes Status: Acute Plan to address problem: transfusion. (2) Fatigue associated with anemia Current Visit: Yes Status: Acute Plan to address problem: replacement of blood. (3) SOB (shortness of breath) Current Visit: Yes Status: Acute Plan to address problem: oxygen
[2019-06-07] MEDS ORDERED: SODIUM CHLORIDE 0.9% 500 ML 500 ML IV ONE (20:29)
[2019-06-07] MEDS ORDERED: LISINOPRIL 40 MG TAB PO SCH (22:00)
[2019-06-07] MEDS ORDERED: SODIUM CHLORIDE 0.9% 500 ML 500 ML ONE (23:17)
[2019-06-08 08:26] LABS: Hematocrit 32.2 % (30.3-42.9); Hemoglobin 10.6 gm/dl (10.1-14.3)
[2019-06-08 12:03] VITALS: BP 156/86
--- NOTE | 2019-06-08 16:24 | Discharge Summary ---
Providers - Providers Date of Admission: 06/07/19 16:08 Date of discharge: 06/08/19 Attending physician: REMBERTO REIS Primary care physician: MICHEL DENNEY Hospitalization Reason for admission: t Condition: Stable Hospital course: Patient seen, resting ok, having US done, NAD, labs reviewed, HGB up by only 1gm after 2units PRBC replacement.Iron is low, and will address out patient. Once US exam finished, will D/C her home. Disposition: TO HOME OR SELFCARE - Discharge Diagnoses (1) Symptomatic anemia Status: Resolved (2) Fatigue associated with anemia Status: Resolved (3) SOB (shortness of breath) Status: Resolved Core Measure Documentation - Palliative Care Palliative Care/ Comfort Measures: Not Applicable - Core Measures Any of the following diagnoses?: none Exam - Constitutional Vitals: Temp Pulse Resp BP Pulse Ox 98.4 F 73 18 156/86 99 06/08/19 11:27 06/08/19 11:27 06/08/19 11:27 06/08/19 11:27 06/08/19 14:54 General appearance: Present: no acute distress, well-nourished - EENT Eyes: Present: PERRL ENT: hearing intact, clear oral mucosa - Neck Neck: Present: supple, normal ROM - Respiratory Respiratory effort: normal Respiratory: bilateral: CTA - Cardiovascular Heart Sounds: Present: S1 & S2. Absent: rub, click - Extremities Extremities: pulses symmetrical, No edema Peripheral Pulses: within normal limits - Abdominal General gastrointestinal: Present: soft, non-tender, non-distended, normal bowel sounds Female genitourinary: Present: deferred - Rectal Rectal Exam: deferred - Integumentary Integumentary: Present: clear, warm, dry - Musculoskeletal Musculoskeletal: gait normal, strength equal bilaterally - Psychiatric Psychiatric: appropriate mood/affect, intact judgment & insight - Neurologic Neurologic: CNII-XII intact, moves all extremities Plan Activity: no restrictions Follow up with: MICHEL DENNEY MD [Primary Care Provider] - 7 Days REMBERTO REIS DO [Staff Physician] - 7 Days
--- NOTE | 2019-06-08 17:40 | Ultrasound Report ---
ULTRASOUND PELVIS INDICATION: ENDOMETRIAL INFLAMMATION. TECHNIQUE: Transvaginal. Duplex Color Doppler used: Yes. COMPARISON: None available FINDINGS: Uterus: Present. Size: 9.2 x 5.0 x 6.5 cm. Endometrial complex: Thickened measuring 0.2 cm. Mass lesions: 2 hypoechoic solid lesions are seen along the uterine fundus measuring 2.1 x 1.9 x 1.9 cm and abutting the endometrium measuring 0.7 x 0.6 x 0.5 cm. Additional findings: A calcification is seen along the lower uterine segment. Right Ovary: Size: 3.2 x 2.6 x 2.3 cm Blood flow: Normal. Cyst or mass: None. Left Ovary: Size: 2.8 x 1.6 x 2.0 cm Blood flow: Normal. Cyst or mass: None. Urinary Bladder: Not well visualized. Free Fluid: None. Additional Findings: None. IMPRESSION: Endometrial thickening with suspected small uterine fibroids as above. Signer Name: Brendan Vigil MD Signed: 06/08/2019 5:35 PM Workstation Name: [id number]
[2019-06-12 22:35] LABS: ANA Screen, IFA Negative (Negative)
== END 2019-06-08 18:10 | disposition home or self-care (01) | DRG 812 ==
LOC: UNDOADMIN 14:25 → 3A 14:25
PROVIDERS: ADMIT Internal Medicine Hematology & Oncology; ATTEND Internal Medicine Hematology & Oncology
PROC: 30233N1 Transfusion of Nonautologous Red Blood Cells into Peripheral Vein, Percutaneous Approach (ICD-10-PCS; principal; 2019-06-08)
DX: D64.9 Anemia, unspecified (principal); Z88.2 Allergy status to sulfonamides; Z91.018 Allergy to other foods
CPT/HCPCS: 36415; 76830; 82670; 82728; 83550; 84144; 84443; 85014; 85018; 86038; 86850; 86900; 86901; 86920; G0378; J7040; P9016

== ENCOUNTER 2021-05-17 17:39 | Emergency (ER) | payer MEDICAID ==
--- NOTE | 2021-05-17 20:22 | Emergency Department Report ---
Blank Doc - Documentation Documentation: I attempted to see patient multiple times, patient is not present in exam room, I called patient overhead on the intercom system, unable to locate patient, I never evaluated this patient, it appears to have eloped from the emergency room
== END 2021-05-17 19:00 ==
LOC: ED 17:39
DX: R07.9 Chest pain, unspecified (principal); Z53.21 Procedure and treatment not carried out due to patient leaving prior to being seen by health care provider

== ENCOUNTER 2022-03-27 06:56 | Emergency (ER) | payer MEDICAID ==
[2022-03-27 07:47] VITALS: BP 158/90
[2022-03-27] MEDS ORDERED: HYDROcodone/ACETAMINOPHEN 10-325MG TAB PO ONE (11:00)
--- NOTE | 2022-03-27 12:00 | Emergency Department Report ---
ED ENT HPI - General Chief complaint: Dental/Oral Stated complaint: LEFT SIDE ABSCESS/SWOLLEN Time Seen by Provider: 03/27/22 10:49 Source: patient Mode of arrival: Ambulatory Limitations: No Limitations - History of Present Illness Initial comments: This is a 41-year-old female nontoxic, well nourished in appearance, no acute signs of distress presents to the ED with c/o of left lower toothache several days. Patient denies following up with a dentist. Stated believes has some swelling that started this morning. Patient describes toothache as aching level of 8 out of 10. Patient denies any numbness, tingling, fever, chills, headache, stiff neck, abdominal pain, chest pain, shortness of breath. MD complaint: tooth pain -: days(s) Location: tooth # 1 - pain here Severity: mild Severity scale (0 -10): 8 Quality: aching Consistency: constant Improves with: none Worsens with: none Context- Dental: history of dental caries, poor dental care Associated Symptoms: gum swelling, toothache. denies: fever, cough, pain with swallowing, sore throat, tinnitus, hearing loss, discharge from ear, rhinorrhea - Related Data Home Medications Medication Instructions Recorded Confirmed Last Taken metFORMIN [Glucophage] 500 mg PO BID 08/22/15 08/03/16 08/02/16 ARIPiprazole [Abilify TAB] 5 mg PO DAILY 07/29/16 08/03/16 08/02/16 Albuterol Sulfate [Albuterol 0.63% 0.63 mg IH TID PRN 07/29/16 08/03/16 08/03/16 NEBS] Bupropion HCl [Wellbutrin XL] 300 mg PO QAM 07/29/16 08/03/16 08/02/16 Flunisolide [Aerospan] 8.9 gm IH PRN PRN 07/29/16 08/03/16 08/02/16 Spironolactone 50 mg PO DAILY 07/29/16 08/03/16 08/02/16 Trazodone HCl [Oleptro ER] 150 mg PO QHS 07/29/16 08/03/16 08/02/16 atenoloL [Tenormin] 50 mg PO DAILY 07/29/16 08/03/16 08/02/16 clonazePAM [ Klonopin] 0.5 mg PO BID 07/29/16 08/03/16 08/02/16 Previous Rx's Medication Instructions Recorded Last Taken Type Docusate Sodium [Colace] 100 mg PO BID PRN #60 capsule 08/05/16 Unknown Rx Ferrous Sulfate [Feosol 325 MG tab] 325 mg PO BID #60 tablet 08/05/16 Unknown Rx Ibuprofen [Motrin] 800 mg PO Q8HR PRN #30 tablet 08/05/16 Unknown Rx Simethicone [Gas Relief] 125 mg PO BID PRN #30 capsule 08/05/16 Unknown Rx oxyCODONE /ACETAMINOPHEN [Percocet 1 tab PO Q6HR PRN #30 tablet 08/05/16 Unknown Rx 5/325] Furosemide [Lasix] 20 mg PO QDAY #15 tablet 04/13/17 Unknown Rx Potassium Chloride [K-Dur] 10 meq PO QDAY #15 tablet 04/13/17 Unknown Rx Chlorhexidine Mouthwash [Peridex] 15 ml MM BID #1 bottle 03/27/22 Unknown Rx Clindamycin [Clindamycin CAP] 300 mg PO Q8H #21 cap 03/27/22 Unknown Rx Naproxen 500 mg PO Q12H PRN #12 tab 03/27/22 Unknown Rx Allergies Allergy/AdvReac Type Severity Reaction Status Date / Time Sulfa (Sulfonamide Allergy Anaphylaxis Verified 07/28/16 15:07 Antibiotics) chocolate flavor AdvReac Unknown Hives Verified 07/28/16 15:07 tomato [Tomato] AdvReac Unknown Hives Verified 07/28/16 15:07 ED Dental HPI - General Chief complaint: Dental/Oral Stated complaint: LEFT SIDE ABSCESS/SWOLLEN Time Seen by Provider: 03/27/22 10:49 Source: patient Mode of arrival: Ambulatory Limitations: No Limitations - Related Data Home Medications Medication Instructions Recorded Confirmed Last Taken metFORMIN [Glucophage] 500 mg PO BID 08/22/15 08/03/16 08/02/16 ARIPiprazole [Abilify TAB] 5 mg PO DAILY 07/29/16 08/03/16 08/02/16 Albuterol Sulfate [Albuterol 0.63% 0.63 mg IH TID PRN 07/29/16 08/03/16 08/03/16 NEBS] Bupropion HCl [Wellbutrin XL] 300 mg PO QAM 07/29/16 08/03/16 08/02/16 Flunisolide [Aerospan] 8.9 gm IH PRN PRN 07/29/16 08/03/16 08/02/16 Spironolactone 50 mg PO DAILY 07/29/16 08/03/16 08/02/16 Trazodone HCl [Oleptro ER] 150 mg PO QHS 07/29/16 08/03/16 08/02/16 atenoloL [Tenormin] 50 mg PO DAILY 07/29/16 08/03/16 08/02/16 clonazePAM [ Klonopin] 0.5 mg PO BID 07/29/16 08/03/16 08/02/16 Previous Rx's Medication Instructions Recorded Last Taken Type Docusate Sodium [Colace] 100 mg PO BID PRN #60 capsule 08/05/16 Unknown Rx Ferrous Sulfate [Feosol 325 MG tab] 325 mg PO BID #60 tablet 08/05/16 Unknown Rx Ibuprofen [Motrin] 800 mg PO Q8HR PRN #30 tablet 08/05/16 Unknown Rx Simethicone [Gas Relief] 125 mg PO BID PRN #30 capsule 08/05/16 Unknown Rx oxyCODONE /ACETAMINOPHEN [Percocet 1 tab PO Q6HR PRN #30 tablet 08/05/16 Unknown Rx 5/325] Furosemide [Lasix] 20 mg PO QDAY #15 tablet 04/13/17 Unknown Rx Potassium Chloride [K-Dur] 10 meq PO QDAY #15 tablet 04/13/17 Unknown Rx Chlorhexidine Mouthwash [Peridex] 15 ml MM BID #1 bottle 03/27/22 Unknown Rx Clindamycin [Clindamycin CAP] 300 mg PO Q8H #21 cap 03/27/22 Unknown Rx Naproxen 500 mg PO Q12H PRN #12 tab 03/27/22 Unknown Rx Allergies Allergy/AdvReac Type Severity Reaction Status Date / Time Sulfa (Sulfonamide Allergy Anaphylaxis Verified 07/28/16 15:07 Antibiotics) chocolate flavor AdvReac Unknown Hives Verified 07/28/16 15:07 tomato [Tomato] AdvReac Unknown Hives Verified 07/28/16 15:07 ED Review of Systems ROS: Stated complaint: LEFT SIDE ABSCESS/SWOLLEN Other details as noted in HPI Comment: All other systems reviewed and negative Constitutional: denies: chills, fever Eyes: denies: eye pain, eye discharge, vision change ENT: dental pain. denies: ear pain, throat pain Respiratory: denies: cough, shortness of breath, wheezing Cardiovascular: denies: chest pain, palpitations Endocrine: no symptoms reported Gastrointestinal: denies: abdominal pain, nausea, diarrhea Genitourinary: denies: urgency, dysuria, discharge Musculoskeletal: denies: back pain, joint swelling, arthralgia Skin: denies: rash, lesions Neurological: denies: headache, weakness, paresthesias Psychiatric: denies: anxiety, depression Hematological/Lymphatic: denies: easy bleeding, easy bruising ED Past Medical Hx - Past Medical History Previous Medical History?: Yes Hx Hypertension: Yes (x 6 or 7 yrs) Hx Congestive Heart Failure: No Hx Diabetes: Yes ("borderline") Hx Headaches / Migraines: Yes Hx Asthma: Yes Hx COPD: No Hx HIV: No - Surgical History Past Surgical History?: Yes 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 - Social History Smoking Status: Never Smoker - Medications Home Medications: Home Medications Medication Instructions Recorded Confirmed Last Taken Type metFORMIN [Glucophage] 500 mg PO BID 08/22/15 08/03/16 08/02/16 History ARIPiprazole [Abilify TAB] 5 mg PO DAILY 07/29/16 08/03/16 08/02/16 History Albuterol Sulfate [Albuterol 0.63% 0.63 mg IH TID PRN 07/29/16 08/03/16 08/03/16 History NEBS] Bupropion HCl [Wellbutrin XL] 300 mg PO QAM 07/29/16 08/03/16 08/02/16 History Flunisolide [Aerospan] 8.9 gm IH PRN PRN 07/29/16 08/03/16 08/02/16 History Spironolactone 50 mg PO DAILY 07/29/16 08/03/16 08/02/16 History Trazodone HCl [Oleptro ER] 150 mg PO QHS 07/29/16 08/03/16 08/02/16 History atenoloL [Tenormin] 50 mg PO DAILY 07/29/16 08/03/16 08/02/16 History clonazePAM [ Klonopin] 0.5 mg PO BID 07/29/16 08/03/16 08/02/16 History Docusate Sodium [Colace] 100 mg PO BID PRN #60 capsule 08/05/16 Unknown Rx Ferrous Sulfate [Feosol 325 MG tab] 325 mg PO BID #60 tablet 08/05/16 Unknown Rx Ibuprofen [Motrin] 800 mg PO Q8HR PRN #30 tablet 08/05/16 Unknown Rx Simethicone [Gas Relief] 125 mg PO BID PRN #30 capsule 08/05/16 Unknown Rx oxyCODONE /ACETAMINOPHEN [Percocet 1 tab PO Q6HR PRN #30 tablet 08/05/16 Unknown Rx 5/325] Furosemide [Lasix] 20 mg PO QDAY #15 tablet 04/13/17 Unknown Rx Potassium Chloride [K-Dur] 10 meq PO QDAY #15 tablet 04/13/17 Unknown Rx Chlorhexidine Mouthwash [Peridex] 15 ml MM BID #1 bottle 03/27/22 Unknown Rx Clindamycin [Clindamycin CAP] 300 mg PO Q8H #21 cap 03/27/22 Unknown Rx Naproxen 500 mg PO Q12H PRN #12 tab 03/27/22 Unknown Rx ED Physical Exam - General Limitations: No Limitations General appearance: alert, in no apparent distress - Head Head exam: Present: atraumatic, normocephalic - Eye Eye exam: Present: normal appearance - Expanded ENT Exam Expanded Ear exam: Present: normal external inspection Mouth exam: Present: normal external inspection, tongue normal. Absent: drooling, trismus, muffled voice Teeth exam: Present: dental caries, dental tenderness #, gingival enlargement, other (no facial swelling. no dental abscess) 1 - Dental Tenderness Throat exam: Positive: normal inspection, other (uvula midline). Negative: tonsillar erythema, tonsillomegaly, tonsillar exudate, R peritonsillar mass, L peritonsillar mass - Neck Neck exam: Present: normal inspection, full ROM. Absent: tenderness, lymphad enopathy - Respiratory Respiratory exam: Absent: respiratory distress - Cardiovascular Cardiovascular Exam: Present: regular rate - Extremities Exam Extremities exam: Present: full ROM - Back Exam Back exam: Present: full ROM - Neurological Exam Neurological exam: Present: alert, oriented X3, normal gait - Psychiatric Psychiatric exam: Present: normal affect, normal mood - Skin Skin exam: Present: warm, dry, intact, normal color. Absent: rash ED Course Vital Signs 03/27/22 07:45 Temperature 98.8 F Pulse Rate 72 Respiratory 20 Rate Blood Pressure 158/90 [Right] O2 Sat by Pulse 100 Oximetry - Reevaluation(s) Reevaluation #1: 03/27/22 12:00 Patient is speaking in full sentences with no signs of distress noted. ED Medical Decision Making - Medical Decision Making This is a 41-year-old female that presents with gingivitis and dental caries. P atient is stable and was examined by me. Exam is not consistent with a dental abscess. I will discharge patient with clinda. Patient was instructed to follow-up with a dentist doctor in 3-5 days or if symptoms worsen and continue return to emergency room as soon as possible. At time of discharge, the patient does not seem toxic or ill in appearance. No acute signs of distress noted. Patient agrees to discharge treatment plan of care. No further questions noted by the patient. Critical care attestation.: If time is entered above; I have spent that time in minutes in the direct care of this critically ill patient, excluding procedure time. ED Disposition Clinical Impression: Dental caries, Gingivitis Disposition: HOME / SELF CARE / HOMELESS Is pt being admited?: No Does the pt Need Aspirin: No Condition: Stable Additional Instructions: Follow-up with a dentist doctor in 3-5 days or if symptoms worsen and continue return to emergency room as soon as possible. Prescriptions: Clindamycin [Clindamycin CAP] 300 mg PO Q8H #21 cap Naproxen 500 mg PO Q12H PRN #12 tab PRN Reason: Pain , Severe (7-10) Chlorhexidine Mouthwash [Peridex] 15 ml MM BID #1 bottle Referrals: MICHEL DENNEY MD [Primary Care Provider] - 3-5 Days PRIMARY CARE, [Referring] - 3-5 Days [facility] [Outside] - 3-5 Days [facility] [Outside] - 3-5 Days Time of Disposition: 12:03
== END 2022-03-27 12:28 | disposition home or self-care (01) ==
LOC: ED 06:56
DX: K02.9 Dental caries, unspecified (principal); K05.10 Chronic gingivitis, plaque induced; I10 Essential (primary) hypertension; E11.9 Type 2 diabetes mellitus without complications; G43.909 Migraine, unspecified, not intractable, without status migrainosus; J45.909 Unspecified asthma, uncomplicated; Z88.2 Allergy status to sulfonamides; Z91.02 Food additives allergy status; Z91.011 Allergy to milk products
CPT/HCPCS: 99282